=== PATIENT | female | born 1995 | race Two or more races ===

== ENCOUNTER 2018-12-06 14:22 | Observation (INO) | payer MEDICAID ==
[~2018-12-06] VITALS: Ht 152.4 cm; Wt 54.4 kg
[2018-12-06 15:33] LABS: Urine Bacteria NONE SEEN /hpf (None Seen); Urine Blood Negative /uL (Negative); Urine Mucus FEW (None Seen); Urine Specific Gravity 1.025 (1.001-1.035); Urine WBC 2 /hpf (0 - 5)
[2018-12-06 15:34] LABS: Alcohol, Urine < 3.0 mg/dL (0-5); Amphetamine Screen, Urine NEGATIVE (NEGATIVE); Barbiturate Scree,Urine NEGATIVE (NEGATIVE); Benzodiazephine Screen, Urine NEGATIVE (NEGATIVE); Cannabinoid Screen, Urine NEGATIVE (NEGATIVE); Cocaine Screen, Urine NEGATIVE (NEGATIVE); Opiate Scree,Urine NEGATIVE (NEGATIVE); Phencyclidine Screen, Urine NEGATIVE (NEGATIVE)
== END 2018-12-06 16:53 | disposition home or self-care (01) | DRG 566 ==
LOC: LDRP 14:22
PROVIDERS: ADMIT Specialist; ATTEND Specialist
DX: O36.5930 Maternal care for other known or suspected poor fetal growth, third trimester, not applicable or unspecified (principal); Z3A.36 36 weeks gestation of pregnancy
CPT/HCPCS: 76818; 80307; 81001; G0378; 59025; 81002

== ENCOUNTER 2018-12-12 10:21 | Observation (INO) | payer MEDICAID ==
[2018-12-12] MEDS ORDERED: PREN-145 OR (16:20)
== END 2018-12-12 16:35 | disposition home or self-care (01) | DRG 566 ==
LOC: LDRP 15:12
PROVIDERS: ADMIT Specialist; ATTEND Specialist
DX: O36.5930 Maternal care for other known or suspected poor fetal growth, third trimester, not applicable or unspecified (principal); Z3A.37 37 weeks gestation of pregnancy
CPT/HCPCS: 59025; 76818; 81002; G0378

== ENCOUNTER 2018-12-14 21:45 | Observation (INO) | payer MEDICAID ==
[~2018-12-14 21:45] MED LIST: PREN-145 OR
== END 2018-12-14 23:20 | disposition home or self-care (01) | DRG 565 ==
LOC: LDRP 21:45
PROVIDERS: ADMIT Specialist; ATTEND Specialist
DX: O47.1 False labor at or after 37 completed weeks of gestation (principal); O99.323 Drug use complicating pregnancy, third trimester; O36.5930 Maternal care for other known or suspected poor fetal growth, third trimester, not applicable or unspecified; O26.853 Spotting complicating pregnancy, third trimester; F19.90 Other psychoactive substance use, unspecified, uncomplicated; Z3A.38 38 weeks gestation of pregnancy
CPT/HCPCS: 59025; 81002; G0378

== ENCOUNTER 2018-12-21 17:20 | Observation (INO) | payer MEDICAID ==
[~2018-12-21] VITALS: Ht 1 cm; Wt 0.5 kg
[2018-12-21] MEDS ORDERED: LACTATED RINGER'S 1,000 ML IV SCH (18:43)
[2018-12-21] MEDS ORDERED: LACT. RINGERS/OXYTOCIN 20UNITS 1,000 ML IV SCH (18:43)
[2018-12-21] MEDS ORDERED: CARBOPROST TROMETHAMINE 250 MCG/1ML VIAL IM PRN (18:45)
[2018-12-21] MEDS ORDERED: METHYLERGONOVINE MALEATE 0.2 MG/ML AMP IM PRN (18:45)
[2018-12-21] MEDS ORDERED: PHISODERM TOP SOLN 240ML BTL TOP PRN (18:45)
[2018-12-21] MEDS ORDERED: DERMOPLAST 60ML BOTTLE TOP PRN (18:45)
[2018-12-21] MEDS ORDERED: WITCH HAZEL-GLYCERIN PAD TOP PRN (18:45)
[2018-12-21] MEDS ORDERED: NALBUPHINE HCL 10 MG/1ml INJECTION IV PRN (18:45)
[2018-12-21] MEDS ORDERED: LIDOCAINE 2%HCL (LOCAL ANESTH.) INJ 20ML MDV ID ONE (18:45)
[2018-12-21] MEDS ORDERED: PROMETHAZINE HCL 25 MG/ML 1ML IV PRN (19:00)
[2018-12-21 19:24] LABS: Basophils # (auto) 0 uL; Basophils % (auto) 0.3 % (0.0-2.0); Eosinophils # (auto) 0.2 uL; Eosinophils % (auto) 2.8 % (0.0-7.0); Hematocrit 33.8 % (36.0-46.0); Hemoglobin 11.3 g/dL (12.2-16.2); Lymphocytes # (auto) 1.3 uL; Mean Corpuscular Hemoglobin 30.8 pg (28.0-32.0); Mean Corpuscular Hgb Conc. 33.5 g/dL (32.0-36.0); Monocytes # (auto) 0.4 uL; Monocytes % (auto) 7.1 % (0.0-12.0); Neutrophils # (auto) 4.1 uL; Neutrophils % (auto) 67.8 % (37.0-80.0); Platelet Count (auto) 303 10^3/uL (140-450); Red Blood Cells 3.67 10^6/uL (4.0-5.20); Red Cell Distribution Width 15.1 % (11.8-14.3)
[2018-12-21 19:30] LABS: Albumin 2.5 g/dL (3.4-5.0); BUN/Creatinine Ratio 19.7; Calcium 7.8 mg/dL (8.5-10.1); Potassium 3.9 mmol/L (3.5-5.1)
[2018-12-21 19:33] LABS: Bilirubin, Total 0.3 mg/dL (0.2-1.0)
[2018-12-21 19:46] LABS: INR < 0.93 (0.9-1.15); Partial Thromboplastin Time 24.6 sec (23.64-32.05)
[2018-12-21 20:04] LABS: Urine Bacteria NONE SEEN /hpf (None Seen); Urine Blood Negative /uL (Negative); Urine Mucus FEW (None Seen); Urine Specific Gravity 1.033 (1.001-1.035); Urine WBC 2 /hpf (0 - 5)
[2018-12-21 20:14] LABS: Amphetamine Screen, Urine NEGATIVE (NEGATIVE); Barbiturate Scree,Urine NEGATIVE (NEGATIVE); Benzodiazephine Screen, Urine NEGATIVE (NEGATIVE); Cocaine Screen, Urine NEGATIVE (NEGATIVE); Opiate Scree,Urine NEGATIVE (NEGATIVE); Phencyclidine Screen, Urine NEGATIVE (NEGATIVE)
[2018-12-21 20:15] LABS: Cannabinoid Screen, Urine NEGATIVE (NEGATIVE)
[2018-12-23 05:06] LABS: RPR Non Reactive (Non Reactive)
== END 2018-12-21 20:55 | disposition home or self-care (01) | DRG 566 ==
LOC: LDRP 17:20
PROVIDERS: ADMIT Obstetrics & Gynecology; ATTEND Obstetrics & Gynecology
DX: O36.5930 Maternal care for other known or suspected poor fetal growth, third trimester, not applicable or unspecified (principal); O26.893 Other specified pregnancy related conditions, third trimester; N89.8 Other specified noninflammatory disorders of vagina; Z3A.37 37 weeks gestation of pregnancy
CPT/HCPCS: 36415; 59025; 76818; 80053; 80307; 81001; 81002; 84112; 85025; 85610; 85730; 86592; 86850; 86900; 86901; 87081; G0378